=== PATIENT | female | born 1975 | race African-American/Black ===

== ENCOUNTER 2022-04-20 13:50 | Outpatient (CLI) | payer MEDICARE, MEDICAID | END 2022-04-20 13:51 | disposition home or self-care (01) | LOC: BICMAMMO 13:50 | PROVIDERS: ATTEND Family Medicine | DX: Z12.31 Encounter for screening mammogram for malignant neoplasm of breast (principal) | CPT/HCPCS: 77063; 77067 ==

== ENCOUNTER 2022-10-10 17:30 | Outpatient (CLI) | payer MEDICARE, MEDICAID | END 2022-10-10 17:31 | disposition home or self-care (01) | LOC: SLEEPLAB 17:30 | PROVIDERS: ATTEND Family Medicine | DX: G47.33 Obstructive sleep apnea (adult) (pediatric) (principal); R53.83 Other fatigue; E66.9 Obesity, unspecified; R06.83 Snoring; R56.9 Unspecified convulsions; K21.9 Gastro-esophageal reflux disease without esophagitis; F79 Unspecified intellectual disabilities | CPT/HCPCS: 95800 ==

== ENCOUNTER 2022-10-31 07:54 | Outpatient (CLI) | payer MEDICARE, MEDICAID | END 2022-10-31 07:55 | disposition home or self-care (01) | LOC: ULT 07:54 | PROVIDERS: ATTEND Family Medicine | DX: K80.20 Calculus of gallbladder without cholecystitis without obstruction (principal) | CPT/HCPCS: 76705 ==

== ENCOUNTER 2023-11-18 15:37 | Outpatient (CLI) | payer MEDICARE, MEDICAID | END 2023-11-18 15:38 | disposition home or self-care (01) | LOC: RAD 15:37 | PROVIDERS: ATTEND Family Medicine | DX: M25.551 Pain in right hip (principal); M25.552 Pain in left hip; M54.50 Low back pain, unspecified; M47.816 Spondylosis without myelopathy or radiculopathy, lumbar region | CPT/HCPCS: 72100 ==